=== PATIENT | female | born 1960 | race Caucasian/White ===

== ENCOUNTER 2016-05-01 08:36 | Emergency (ER) | payer MEDICARE ==
[2016-05-01 08:55] VITALS: BP 144/76; PULSE 97; TEMP 98.1; BMI 22.0
--- NOTE | 2016-05-01 09:20 | EDPRACDOC ---
- General Information Chief Complaint: Headache Stated Complaint: FACIAL PRESSURE, CONGESTION Time Seen by Provider: 05/01/16 09:00 Mode Of Arrival: Car Home Medications: Home Medications Cyclobenzaprine HCl 5 mg PO DAILY PRN 04/16/15 Loratadine [Claritin] 10 mg PO DAILY PRN 04/21/16 Ranitidine HCl [Zantac] 150 mg PO BID 04/21/16 Amoxicillin 500 mg PO BID #20 capsule 05/01/16 Fluticasone Propionate [Flonase Nasal [place]] 2 spray DIOR DAILY #1 each 05/01/16 Sevelamer Carbonate [Renvela] 800 mg PO .TID WITH MEALS 05/01/16 Allergies/Adverse Reactions: Allergies Allergy/AdvReac Type Severity Reaction Status Date / Time erythromycin lactobionate Allergy Hives* Verified 05/01/16 08:50 [From Erythrocin] Sulfa (Sulfonamide Allergy Rash-Genera Verified 05/01/16 08:50 Antibiotics) lized - History of Present Illness Onset: 6 days HPI: PT C/O FACIAL PRESSURE AND PAIN WITH NASAL CONGESTION AND DIFFICULTY BREATHING THROUGH NOSE FOR APPROX 1 WEEK. PT STATES SHE IS A DIALYSIS PT 3 TIMES PER WEEK. Current Symptoms: Reports: Headache (FACIAL PRESSURE AND PAIN), Nasal Symptoms Shortness of Breath: None Rhinorrhea: Reports: Green (YELLOW) Ear Symptoms: Reports: None Fever Severity/Quality: Reports: no fever Oral Intake: Normal Urinary Output: Normal Relevant History of: Renal Disease, Other (DIALYSIS 3 TIMES PER WEEK) Associated Signs & Symptoms:: Reports: Headache (FACIAL PAIN AND [RESSURE), Nasal Symptoms ED Past Medical History - History Reviewed Yes Nurses notes reviewed and agree except as marked Travel Outside of [place] in the Last 3 Months?: No - Patient Medical History Cardiac History: Reports: Hypertension (usually low with dialysis) Respiratory History: Reports: COPD (mild), Pneumonia GI/ History: Reports: Renal Failure Systemic History: Reports: Anemia Surgical History: Reports: Hysterectomy - Family Medical History Reports: Hypertension (r/t kidney disease father, brother X2), Cancer ( grandfather (lung) grandfather (lung, brain)), Cardiac Disorders (father (CHF) brother (CHF)). Denies: Diabetes, Stroke - Social Medical History Smoking Status: Former smoker ETOH: None Substance Abuse: None Lives With: Other Lives In: Home EDM Review of Systems - Review of Systems ROS Negative Except as Marked: Yes All systems reviewed and were negative except as marked Constitutional: No Symptoms Reported. negative: Fever, Chills, Weakness, Fatigue, Loss of Appetite Eyes: No Symptoms Reported. negative: Redness, Blurred Vision, Double Vision, Discharge, Pain, Light Sensitive, Photophobia Ears: No Symptoms Reported. negative: Pain, Hearing Loss, Drainage, Ear Pulling Throat: No Symptoms Reported. negative: Pain, Swelling Nose: Congestion. negative: Abrasion, Bleeding, Discharge, Deformity, Ecchymosis, Injection, Laceration, Swelling, Tender Mouth: No Symptoms Reported. negative: Pain, Drooling Respiratory: No Symptoms Reported. negative: Cough, Brassy Cough, Barky Cough, Shortness of Breath, Wheezing, Hemoptysis Cardiovascular: No Symptoms Reported. negative: Chest Pain, Palpitations, Syncope, Edema, Orthopnea, PND, Skin Mottling, Cyanosis Gastrointestinal: No Symptoms Reported. negative: Pain, Constipation, Nausea, Vomiting, Diarrhea, Melena, Formula Intolerance Genitourinary: No Symptoms Reported. negative: Dysuria, Hematuria, Frequency, Discharge, Bleeding, Testicular Pain, Neurological: Headache (FACIAL PAIN AND PRESSURE). negative: Dizziness, Gait Difficulty, Numbness, Seizure, Speech Difficulty, Weakness Musculoskeletal: No Symptoms Reported. negative: Neck, Chestwall, Ribs, Back, Shoulder, Arm, Elbow, Forearm, Wrist, Hand, Pelvis, Hip, Femur, Knee, Leg, Ankle , Foot Integumentary: No Symptoms Reported. negative: Itching, Rash, Bruising, Wound Allergic/Immunologic: No Symptoms Reported. negative: Hives, Itching Hematologic: No Symptoms Reported. negative: Lymphadenopathy, Easy Bruising, Easy Bleeding Endocrine: No Symptoms Reported. negative: Weight Gain, Weight Loss Psychiatric: No Symptoms Reported. negative: Anxiety, Depression, Hallucinations, Insomnia, Suicidal - Physical Exam Constitutional: No apparent distress, Alert (Awake) Oriented to: Time, Person, Place Last recorded Vital Signs: Last Vital Signs Temp 98.1 F 05/01/16 08:50 Pulse 97 05/01/16 08:50 Resp 18 05/01/16 08:50 BP 144/76 05/01/16 08:50 Pulse Ox 98 05/01/16 08:50 Oxygen Pulse Oxygen Saturation 98 O2 Device Room Air Oxygen Flow Rate Fraction of Inspired Oxygen ( FIO2) - HEENT Head: Other (MAXILLARY AND FRONTAL SINUS TENDERNESS) Eye Exam: Normal (PERRL, EOMI, Sclera white) Oropharynx: Normal (Pharynx:Moist without exudate,Gums-no swelling) Tympanic Membrane: Normal ENT EAC: Normal TMJ: Normal Nose: Congestion, Swelling (REDNESS OF TURBINATES BILATERAL) Neck: Normal (FROM, trachea at midline) - Respiratory/Cardiovascular Respiratory: Normal - CTA (BBS clear to auscultation without adventitious sounds ) Cardiovascular: Normal (RRR without murmur, gallop or rub) - GI Auscultation: Normal (NABS) Palpation: Normal (Soft,No rebound or guarding, non distended) Tenderness: Non tender Howard's Sign: Negative - Musculoskeletal Back: Normal (Non-Tender) Extremities: Normal (Normal tone, Pulses 2+ No cyanosis or edema, FROM) - Integumentary Skin: Normal, Warm, Dry Lymphatics: Normal (no adenopathy) - Neurologic Memory Impaired: Normal Motor Function: Normal (Normal tone, Pulses 2+ No cyanosis or edema, FROM) Cranial Nerve: Normal (CN II-X11 intact sensation, strength 5/5) Cerebellar: Normal Mood Description: Normal Perception: Normal - Differential Diagnosis Sinusitis, Viral Decision Time to Discharge: 09:22 - Departure Disposition: Home Condition: Stable Final Diagnosis: Acute sinusitis Qualifiers: Sinusitis location: maxillary Recurrence: non-recurrent Qualified Code(s): J01.00 - Acute maxillary sinusitis, unspecified Instructions: Sinusitis (ED) Education/Counseling Given To: Patient Education/Counseling Given Regarding: Diagnosis, Treatment, Prognosis, Follow Up Referrals: None,No Provider [Primary Care Provider] - One Week Prescriptions: New Amoxicillin 500 mg PO BID #20 capsule Fluticasone Propionate [Flonase Nasal [place]] 2 spray DIOR DAILY #1 each No Action Cyclobenzaprine HCl 5 mg PO DAILY PRN PRN Reason: Pain Ranitidine HCl [Zantac] 150 mg PO BID Loratadine [Claritin] 10 mg PO DAILY PRN PRN Reason: .allergy relief Sevelamer Carbonate [Renvela] 800 mg PO .TID WITH MEALS
== END 2016-05-01 09:32 | disposition home or self-care (01) ==
LOC: ED 08:36
DX: J01.00 Acute maxillary sinusitis, unspecified (principal)
CPT/HCPCS: 99281